=== PATIENT | male | born 1970 | race Two or more races ===

== ENCOUNTER 2020-05-17 14:16 | Outpatient (CLI) | payer BC, SELFPAY | END 2020-05-17 14:17 | disposition home or self-care (01) | LOC: ANHCOVIDVC 14:17 | DX: Z23 Encounter for immunization (principal) | CPT/HCPCS: 0001A; 91300 ==

== ENCOUNTER 2020-06-07 14:17 | Outpatient (CLI) | payer BC, SELFPAY | END 2020-06-07 14:18 | DX: Z23 Encounter for immunization (principal) | CPT/HCPCS: 0002A; 91300 ==